=== PATIENT | female | born 1985 | race Caucasian/White ===

== ENCOUNTER 2017-06-07 12:00 | Emergency (ER) | payer OTHER ==
[~2017-06-07] VITALS: Ht 162.6 cm; Wt 110.0 kg
[~2017-06-07 12:00] MED LIST: ANTICOAGULANT; ASPIRIN81 M2 PO; FOLIC ACID1 MG; IBUPROFEN800 MG PO; MULTI VITAMIN1 EACH PO
== END 2017-06-07 12:38 | disposition home or self-care (01) ==
LOC: CED 12:00
DX: O99.89 Other specified diseases and conditions complicating pregnancy, childbirth and the puerperium (principal); N89.8 Other specified noninflammatory disorders of vagina; Z3A.34 34 weeks gestation of pregnancy
CPT/HCPCS: 99283